=== PATIENT | female | born 1965 | race Caucasian/White ===

== ENCOUNTER → 2016-02-13 | Outpatient (CLI) | payer BC ==
[~2016-02-13] MED LIST: BIRTH CONTROL PO; EXCEDRIN MIGRAI1 TAB PO; LEVAQUIN 5500 MG/TA1 PO; PRILOSEC PO; ZITHROMAX Z PA250 MG PO
== END ==
LOC: COL.VAS 13:27
DX: R07.89 Other chest pain (principal); R68.84 Jaw pain; R00.2 Palpitations

== ENCOUNTER → 2016-08-01 | Outpatient (CLI) | payer BC | LOC: MC.RAD 13:20 | DX: Z12.31 Encounter for screening mammogram for malignant neoplasm of breast (principal) ==

== ENCOUNTER 2017-02-13 17:52 | Emergency (ER) | payer BC ==
[~2017-02-13] VITALS: Ht 160 cm; Wt 78.2 kg
[2017-02-13 17:58] VITALS: TEMP 98.5
[2017-02-13 22:07] VITALS: BP 102/76; PULSE 74
== END 2017-02-13 22:11 | disposition home or self-care (01) ==
LOC: COL.ER 17:52
DX: R13.10 Dysphagia, unspecified (principal); Z90.711 Acquired absence of uterus with remaining cervical stump; Z98.890 Other specified postprocedural states
CPT/HCPCS: C1726; J2060; J2704; J3010; J7030

== ENCOUNTER → 2017-08-12 | Outpatient (CLI) | payer BC | LOC: MC.RAD 11:00 | DX: Z12.31 Encounter for screening mammogram for malignant neoplasm of breast (principal) ==

== ENCOUNTER → 2020-04-20 | Outpatient (CLI) | payer BC | LOC: MC.RAD 16:59 | DX: Z12.31 Encounter for screening mammogram for malignant neoplasm of breast (principal) ==

== ENCOUNTER → 2023-02-11 | Outpatient (CLI) | payer BC | LOC: COL.RAD 14:00 → MC.RAD 14:00 | DX: N60.11 Diffuse cystic mastopathy of right breast (principal) ==

== ENCOUNTER → 2023-04-07 | Outpatient (CLI) | payer BC | LOC: COL.RAD 16:03 | DX: E04.2 Nontoxic multinodular goiter (principal) ==

== ENCOUNTER → 2023-09-22 | Outpatient (CLI) | payer BC ==
[2023-09-22 15:26] LABS: BASO % 0.5 % (0.0-2.0); EOS # 0.3 K/mm3 (0.0-0.7); EOS % 3.8 % (0.0-4.0); GRAN # 5.3 K/mm3 (1.4-6.5); GRAN % 63.4 % (42.2-75.2); HEMATOCRIT 41.5 % (37.0-47.0); HEMOGLOBIN 14.4 g/dl (12.5-16.0); LYMPH # 1.9 K/mm3 (1.2-3.4); MEAN CELL VOLUME 88 fl (80.0-100.0); MEAN CORPUSCULAR HEMOGLOBIN 30 pg (27-31); MEAN CORPUSCULAR HGB CONC 35 g/dl (33.0-37.0); MEAN PLATELET VOLUME 9.4 fl (7.4-10.4); MONO # 0.8 K/mm3 (0.1-0.6); MONO % 9.1 % (1.7-9.3); PLATELET COUNT 251 K/mm3 (130-400); RED BLOOD COUNT 4.73 M/mm3 (4.10-5.30); REDCELL DISTRIBUTION WIDTH-CV 12.3 % (11.5-14.5)
[2023-09-22 15:44] LABS: ERYTHROCYTE SEDIMENTATION RATE 9 mm/hr (0-30)
== END ==
LOC: COL.LAB 14:29
PROVIDERS: Physician Assistant
DX: Z11.9 Encounter for screening for infectious and parasitic diseases, unspecified (principal)